=== PATIENT | male | born 1970 | race Caucasian/White ===

== ENCOUNTER 2017-02-03 13:14 | Inpatient (IN) | payer MEDICAID ==
--- NOTE | 2017-02-03 13:42 | ED PDOC ---
Addendum entered and electronically signed by Hyacinth Brandon PA 02/03/17 14:38: Physical Exam - Physical Exam Cardiovascular: Rhythm Regular, No Murmur, Other (Normal S1, S2) Respiratory: Normal Breath Sounds, No Accessory Muscle Use, No Other ( Respiratory distress) Gastrointestinal/Abdominal: Normal Exam, Soft, No Tenderness Extremity: Normal ROM, No Pedal Edema, Capillary Refill (< 2 sec), No Deformity Original Note: HPI: Headache Chief Complaint (Provider): Headache and chest pain History Per: Patient History/Exam Limitations: no limitations Onset/Duration Of Symptoms: Days (x 1) Current Symptoms Are (Timing): Still Present Additional Complaint(s): Jhonatan is a 46-year-old male who presents to the ED for complaints of fatigue, dizziness, headache, and intermittent chest pressure, ongoing since this morning. He describes feeling as if his blood pressure is high, but did not monitor it at home. Currently he has no chest pressure, which last occurred at 10am this morning. Patient sees a primary medical doctor in [place] and takes 3 unknown medications. He has not taken aspirin today. Denies history of myocardial infarction. PMD: Unknown <Hyacinth Brandon - Last Filed: 02/03/17 14:37> <Trung Landa Jr. - Last Filed: 02/08/17 10:52> Time Seen by Provider: 02/03/17 13:30 Chief Complaint (Nursing): Chest Pain Past Medical History Reviewed: Historical Data, Nursing Documentation, Vital Signs Vital Signs: Last Vital Signs Temp 98 F 02/03/17 13:18 Pulse 83 02/03/17 13:18 Resp 18 02/03/17 13:18 BP 150/89 02/03/17 13:18 Pulse Ox 99 02/03/17 13:18 - Family History Family History: States: Unknown Family Hx <Hyacinth Brandon - Last Filed: 02/03/17 14:37> Vital Signs: Last Vital Signs Temp 97.6 F 02/03/17 14:55 Pulse 72 02/03/17 14:55 Resp 18 02/03/17 14:55 BP 154/96 H 02/03/17 14:55 Pulse Ox 99 02/03/17 14:23 <Trung Landa Jr. - Last Filed: 02/08/17 10:52> - Home Medications Home Medications: Ambulatory Orders Medication Instructions Recorded Losartan [Cozaar] 50 mg PO BID 02/03/17 Triamterene/Hydrochlorothiazid 1 tab PO DAILY 02/03/17 [Triamterene-Hctz 37.5-25 mg Tb] amLODIPine [Norvasc] 5 mg PO DAILY 02/03/17 Acetaminophen [Tylenol 325mg tab] 650 mg PO Q4 PRN tab 02/05/17 - Allergies Allergies/Adverse Reactions: Allergies Allergy/AdvReac Type Severity Reaction Status Date / Time No Known Allergies Allergy Verified 02/03/17 13:38 Review of Systems ROS Statement: Except As Marked, All Systems Reviewed And Found Negative Constitutional: Positive for: Other (Fatigue) Cardiovascular: Positive for: Chest Pain (Intermittent chest pressure) Neurological: Positive for: Headache, Dizziness <Hyacinth Brandon - Last Filed: 02/03/17 14:37> Physical Exam - Reviewed Nursing Documentation Reviewed: Yes Vital Signs Reviewed: Yes - Physical Exam Appears: Positive for: Non-toxic, No Acute Distress Head Exam: Positive for: ATRAUMATIC, NORMOCEPHALIC Skin: Positive for: Normal Color, Warm, Dry Eye Exam: Positive for: EOMI, Normal appearance, PERRL Neurologic/Psych: Positive for: Alert, Oriented <Hyacinth Brandon - Last Filed: 02/03/17 14:37> - Laboratory Results Result Diagrams: 02/03/17 13:53 02/03/17 13:53 - ECG O2 Sat by Pulse Oximetry: 99 (RA) Pulse Ox Interpretation: Normal - Progress ED Course And Treament: ACETAMINOPHEN 975 MG X 1 DOSE FOR PAIN HEAD CT: IMPRESSION: No intracranial mass, hemorrhage or evidence of acute infarct. Chronic paranasal sinusitis. Otherwise unremarkable. ASA 324 MG ORDERED CXR: PENDING <Hyacinth Brandon - Last Filed: 02/03/17 14:37> - Laboratory Results Result Diagrams: 02/05/17 07:00 02/05/17 07:00 <Trung Landa Jr. - Last Filed: 02/08/17 10:52> Medical Decision Making Medical Decision Making: Time: 13:38 Initial Impression: Headache Initial Plan: --Labs --Chest X-Ray --EKG --Given Acetaminophen 975 mg PO --Pending CT Head w/o contrast --Case discussed with Dr. Landa, will move patient to Main ED for telemetry monitoring Time: 13:47 --EKG reviewed with Dr Landa and revealed: J point elevation noted in V4 Scribe Attestation: Documented by Martita Harris, acting as a scribe for Hyacinth Brandon PA-C Provider Scribe Attestation: All medical record entries made by the Scribe were at my direction and personally dictated by me. I have reviewed the chart and agree that the record accurately reflects my personal performance of the history, physical exam, medical decision making, and the department course for this patient. I have also personally directed, reviewed, and agree with the discharge instructions and disposition. <Hyacinth Brandon - Last Filed: 02/03/17 14:37> Medical Decision Making: Progress note: 13:50 - Pt seen and examined w/ PA. Pt with chest pressure and high risk factors (ie, HTN), will hospitalize as observation patient for monitoring. Pt endorsed to special shopper Dr. Vineet Edwards. <Trung Landa Jr. - Last Filed: 02/08/17 10:52> Disposition - Patient ED Disposition Is Patient to be Admitted: Transfer of Care - Disposition Disposition: Transfer of Care Disposition Time: 14:23 Patient Signed Over To: Trung Landa Jr. Handoff Comments: PENDING CXR/BLOODWORK/RE-EVALUATION OF BP <Hyacinth Brandon - Last Filed: 02/03/17 14:37> - Patient ED Disposition Is Patient to be Admitted: Yes - Pt Status Changed To: Hospital Disposition Of: Observation <Trung Landa Jr. - Last Filed: 02/08/17 10:52> - Clinical Impression Clinical Impression: Chest pain, Hypertension - Disposition Condition: FAIR
[2017-02-03 14:06] LABS: BASO # 0.1 K/uL (0.0-0.2); BASO % 0.8 % (0.0-2.0); EOS # 0.3 K/uL (0.0-0.7); HEMATOCRIT 39.4 % (35.0-51.0); LYMPH # 2.5 K/uL (1.0-4.3); LYMPH % 37.8 % (20.0-40.0); MEAN CORPUSCULAR HEMOGLOBIN 28.7 pg (27.0-31.0); MEAN CORPUSCULAR HGB CONC 34.9 g/dL (33.0-37.0); MEAN PLATELET VOLUME 7.9 fl (7.2-11.7); MONO # 0.5 K/uL (0.0-0.8); MONO % 6.9 % (0.0-10.0); NEUT # 3.3 K/uL (1.8-7.0); NEUT % 49.5 % (50.0-75.0); NRBC % 0.2 % (0.0-0.0); RED CELL DISTRIBUTION WIDTH 13.2 % (11.5-14.5); WHITE BLOOD COUNT 6.6 K/uL (4.8-10.8)
--- NOTE | 2017-02-03 14:13 | CT ---
PROCEDURE: CT HEAD WITHOUT CONTRAST. HISTORY: AMS COMPARISON: None available. TECHNIQUE: Axial computed tomography images were obtained through the head/brain without intravenous contrast. Radiation dose: Total exam DLP = 879.18 mGy-cm. This CT exam was performed using one or more of the following dose reduction techniques: Automated exposure control, adjustment of the mA and/or kV according to patient size, and/or use of iterative reconstruction technique. FINDINGS: HEMORRHAGE: No intracranial hemorrhage. BRAIN: No mass effect or edema. No atrophy or chronic microvascular ischemic changes. VENTRICLES: Unremarkable. No hydrocephalus. CALVARIUM: Unremarkable. PARANASAL SINUSES: Chronic ethmoid and sphenoid sinusitis MASTOID AIR CELLS: Unremarkable as visualized. No inflammatory changes. OTHER FINDINGS: None. IMPRESSION: No intracranial mass, hemorrhage or evidence of acute infarct. Chronic paranasal sinusitis. Otherwise unremarkable.
[2017-02-03 14:17] LABS: ALB/GLOB RATIO 1.3 (1.0-2.1); ALKALINE PHOSPHATASE 71 U/L (38-126); ALT/SGPT 44 U/L (21-72); AST/SGOT 42 U/L (17-59); BILIRUBIN,TOTAL 0.5 mg/dl (0.2-1.3); BLOOD UREA NITROGEN 12 mg/dl (9-20); CALCIUM 9.7 mg/dL (8.4-10.2); CARBON DIOXIDE 25 mmol/L (22-30); CHLORIDE 103 mmol/L (98-107); GFR AFRICAN-AMERICAN > 60; GLUCOSE,RANDOM 98 mg/dL (75-110); MAGNESIUM 1.8 MG/DL (1.6-2.3); POTASSIUM 4.1 MMOL/L (3.6-5.0); SODIUM 139 mmol/l (132-148)
[2017-02-03] MEDS ORDERED: EnalaprilAT 1.25 mg/ml Inj IVP STA (15:00)
[2017-02-03] MEDS ORDERED: EnalaprilAT 1.25 mg/ml Inj ONE (15:08)
[2017-02-03] MEDS ORDERED: Aspirin 325 mg EC Tablets PO ONE (15:08)
--- NOTE | 2017-02-03 15:30 | RAD ---
HISTORY: chest pain COMPARISON: No prior. FINDINGS: LUNGS: No active pulmonary disease. PLEURA: No significant pleural effusion identified, no pneumothorax apparent. CARDIOVASCULAR: Normal. OSSEOUS STRUCTURES: No significant abnormalities. VISUALIZED UPPER ABDOMEN: Normal. OTHER FINDINGS: None. IMPRESSION: No active disease.
[2017-02-03] MEDS ORDERED: Magnesium Sulfate 2 gm/50 ml 2 GM/50 ML BAG IVPB ONE (17:42)
--- NOTE | 2017-02-03 17:46 | CP.PCM.CON ---
History of Present Illness - History of Present Illness History of Present Illness: CC elevated bp and headache pt with htn hx. 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 this morning woke up with a severe headache and elevated bp. pt felt weak. no cp, sob, lh, dizziness, syncope, palp. he does have dyslipidemia. no dm, no hx of cad, fam hx is sig for dm. pts pressure currently is 140/80 after enaliprat. pt also complaining about frequent urination from diuretic therapy. no hx of edema or chf. per pt recent st and echo wnl. Review of Systems - Constitutional Constitutional: As Per HPI, Headache. absent: Anorexia, Chills, Daytime Sleepiness, Excessive Sweating, Fatigue, Fever, Frequent Falls, Increased Appetite, Lethargy, Malaise, Night Sweats, Snoring, Sleep Apnea, Weight Gain, Weight Loss, Weakness, Other - EENT Eyes: As Per HPI. absent: Blind Spots, Blurred Vision, Change in Vision, Decreased Night Vision, Diplopia, Discharge, Dry Eye, Exophthalmos, Floaters, Irritation, Itchy Eyes, Loss of Peripheral Vision, Pain, Photophobia, Requires Corrective Lenses, Sees Flashes, Spots in Vision, Tunnel Vision, Other Visual Disturbances, Loss of Vision, Other Ears: As Per HPI. absent: Decreased Hearing, Ear Discharge, Ear Pain, Tinnitus , Abnormal Hearing, Disequilibrium, Dizziness, Other Nose/Mouth/Throat: As Per HPI. absent: Epistaxis, Nasal Congestion, Nasal Discharge, Nasal Obstruction, Nasal Trauma, Nose Pain, Post Nasal Drip, Sinus Pain, Sinus Pressure, Bleeding Gums, Change in Voice, Dental Pain, Dry Mouth, Dysphagia, Halitosis, Hoarsness, Lip Swelling, Mouth Lesions, Mouth Pain, Odynophagia, Sore Throat, Throat Swelling, Tongue Swelling, Facial Pain, Neck Pain, Neck Mass, Other - Cardiovascular Cardiovascular: As Per HPI. absent: Acrocyanosis, Chest Pain, Chest Pain at Rest, Chest Pain with Activity, Claudication, Diaphoresis, Dyspnea, Dyspnea on Exertion, Edema, Irregular Heart Rhythm, Pain Radiating to Arm/Neck/Jaw, Leg Edema, Leg Ulcers, Lightheadedness, Orthopnea, Palpitations, Paroxysmal Nocturnal Dyspnea, Pedal Edema, Radiating Pain, Rapid Heart Rate, Slow Heart Rate, Syncope, Other - Respiratory Respiratory: As Per HPI. absent: Cough, Dyspnea, Hemoptysis, Dyspnea on Exertion, Wheezing, Snoring, Stridor, Pain on Inspiration, Chest Congestion, Excessive Mucous Production, Change in Mucous Color, Pain with Coughing, Other - Gastrointestinal Gastrointestinal: absent: As Per HPI, Abdominal Pain, Belching, Bloating, Change in Bowel Habits, Change in Stool Character, Coffee Ground Emesis, Constipation, Cramping, Diarrhea, Dyspepsia, Dysphagia, Early Satiety, Excessive Flatus, Fecal Incontinence, Heartburn, Hematemesis, Hematochezia, Loose Stools, Melena, Nausea, Odynophagia, Temesmus, Vomiting, Other - Genitourinary Genitourinary: As Per HPI. absent: Change in Urinary Stream, Difficulty Urinating, Dysuria, Flank Pain, Hematuria, Pyuria, Nocturia, Urinary Incontinence, Urinary Frequency, Urinary Hesitance, Urinary Urgency, Voiding Freq/Small Amts, Freq UTI, Hx Renal/Bladder Calculi, Hx /Renal Surgery, Bladder Distension, Other - Musculoskeletal Musculoskeletal: absent: As Per HPI, Abnormal Gait, Arthralgias, Atrophy, Back Pain, Deformity, Joint Swelling, Limited Range of Motion, Loss of Height, Muscle Cramps, Muscle Weakness, Myalgias, Neck Pain, Numbness, Radiating Pain into Limb, Stiffness, Tingling, Other - Integumentary Integumentary: absent: As Per HPI, Acne, Alopecia, Bleeding Lesions, Change in Hair, Change in Nails, Change in Pigmentation, Changing Lesions, Dry Skin, Erythema, Furuncle, Hirsutism, Lesions, New Lesions, Non-Healing Lesions, Photosensitivity, Pruritus, Rash, Skin Pain, Skin Ulcer, Sores, Striae, Swelling , Unusual Bruising, Wounds, Jaundice, Other - Neurological Neurological: absent: As Per HPI, Abnormal Gait, Abnormal Hearing, Abnormal Movements, Abnormal Speech, Behavioral Changes, Burning Sensations, Confusion, Convulsions, Disequilibrium, Dizziness, Numbness, Focal Weakness, Frequent Falls , Headaches, Lack of Coordination, Loss of Vision, Memory Loss, Paresthesias, Radicular Pain, Restless Legs, Sensory Deficit, Syncope, Tingling, Tremor, Vertigo, Weakness, Other Visual Disturbances, Other - Psychiatric Psychiatric: absent: As Per HPI, Abnormal Sleep Pattern, Anhedonia, Anxiety, Auditory Hallucinations, Behavioral Changes, Change in Appetite, Change in Libido, Confusion, Depression, Difficulty Concentrating, Hallucinations, Homicidal Ideation, Hopelessness, Irritability, Memory Loss, Mood Swings, Panic Attacks, Paranoia, Suicidal Ideation, Visual Hallucinations, Tactile Hallucinations, Other - Endocrine Endocrine: absent: As Per HPI, Change in Body Appearance, Change in Libido, Cold Intolorance, Deepening of Voice, Excessive Sweating, Fatigue, Flushing, Heat Intolorance, Increase in Ring/Shoe/Hat Size, Palpitations, Polydipsia, Polyphagia, Polyuria, Other - Hematologic/Lymphatic Hematologic: absent: As Per HPI, Easy Bleeding, Easy Bruising, Lymphadenopathy, Other Past Patient History - Infectious Disease Hx of Infectious Diseases: None - Tetanus Immunizations Tetanus Immunization: Unknown - Past Medical History & Family History Past Medical History?: Yes Pertinent Family History: DM - Past Social History Smoking Status: Never Smoked Chewing Tobacco Use: No Cigar Use: No Alcohol: None Drugs: Denies Home Situation {Lives}: With Family Domestic Violence: Negative - CARDIAC Hx Hypertension: Yes - PULMONARY Hx Respiratory Disorders: No - NEUROLOGICAL Hx Neurological Disorder: No - HEENT Hx HEENT Problems: No - RENAL Hx Chronic Kidney Disease: No - ENDOCRINE/METABOLIC Hx Endocrine Disorders: No - HEMATOLOGICAL/ONCOLOGICAL Hx Blood Disorders: No - INTEGUMENTARY Hx Dermatological Problems: No - MUSCULOSKELETAL/RHEUMATOLOGICAL Hx Musculoskeletal Disorders: No - GASTROINTESTINAL Hx Gastrointestinal Disorders: No - GENITOURINARY/GYNECOLOGICAL Hx Genitourinary Disorders: No - PSYCHIATRIC Hx Psychophysiologic Disorder: No Hx Substance Use: No - SURGICAL HISTORY Hx Surgeries: No Meds Allergies/Adverse Reactions: Allergies Allergy/AdvReac Type Severity Reaction Status Date / Time No Known Allergies Allergy Verified 02/03/17 13:38 - Medications Medications: Current Medications Amlodipine Besylate (Norvasc) 5 mg PO BID [facility] Magnesium Sulfate (Magnesium Sulfate 2 Gm/50 Ml Water) 2 gm in 50 mls @ 50 mls/ hr IVPB ONCE ONE PRN Reason: 2 GM/HR Stop: 02/03/17 18:41 Ramipril (Altace) 5 mg PO BID [facility] Physical Exam - Constitutional Appears: Well - Head Exam Head Exam: ATRAUMATIC, NORMAL INSPECTION, NORMOCEPHALIC - Eye Exam Eye Exam: EOMI, Normal appearance, PERRL. absent: Conjunctival injection, Nystagmus, Periorbital swelling, Periorbital tenderness, Scleral icterus Pupil Exam: NORMAL ACCOMODATION, PERRL. absent: Fixed, Irregular, Miosis, Mydriatic, Unequal - ENT Exam ENT Exam: Mucous Membranes Moist, Normal Exam. absent: Mucous Membranes Dry, Normal External Ear Exam, Normal Oropharynx, TM's Normal Bilaterally - Neck Exam Neck exam: Positive for: Normal Inspection. Negative for: Full Rom, Lymphadenopathy, Meningismus, Tenderness, Thyromegaly - Respiratory Exam Respiratory Exam: Clear to Auscultation Bilateral, NORMAL BREATHING PATTERN. absent: Accessory Muscle Use, Chest Wall Tenderness, Decreased Breath Sounds, Prolonged Expiratory Phase, Rales, Rhonchi, Wheezes, Respiratory Distress, Stridor - Cardiovascular Exam Cardiovascular Exam: REGULAR RHYTHM, +S1, +S2. absent: Bradycardia, Tachycardia , Clicks, Diastolic murmur, Gallop, Irregular Rhythm, JVD, RRR, Rubs, +S4, Systolic Murmur - GI/Abdominal Exam GI & Abdominal Exam: Normal Bowel Sounds, Soft - Rectal Exam Rectal Exam: Deferred - Extremities Exam Extremities exam: Positive for: normal inspection. Negative for: calf tenderness, full ROM, joint swelling, normal capillary refill, pedal edema, tenderness, pedal pulses present - Back Exam Back exam: NORMAL INSPECTION. absent: CVA tenderness (L), CVA tenderness (R), FULL ROM, muscle spasm, paraspinal tenderness, rash noted, tenderness, vertebral tenderness - Neurological Exam Neurological exam: Alert, CN II-XII Intact, Normal Gait, Oriented x3, Reflexes Normal - Psychiatric Exam Psychiatric exam: Normal Affect, Normal Mood - Skin Skin Exam: Dry, Intact, Normal Color, Warm Results - Vital Signs Recent Vital Signs: Last Vital Signs Temp 97.6 F 02/03/17 14:55 Pulse 78 02/03/17 17:22 Resp 19 02/03/17 17:22 BP 140/90 02/03/17 17:22 Pulse Ox 98 02/03/17 17:22 - Labs Result Diagrams: 02/03/17 13:53 02/03/17 13:53 - EKG Data EKG Interpreted by: Myself EKG shows normal: Sinus rhythm Rate: Normal Assessment & Plan (1) Hypertensive urgency Status: Acute (2) Right arm pain Status: Acute (3) Weakness Status: Acute (4) Dyslipidemia Status: Acute (5) Hypertension Status: Acute - Assessment and Plan (Free Text) Plan: change meds to ramipril 5mg bid norvasc 5mg bid check lipids no need for diuretics at this time. monitor on tele/obs. november d/c in am if bp improved and no symptoms. 85 min total care time
[2017-02-03] MEDS ORDERED: Magnesium Sulfate 2 gm/50 ml 2 GM/50 ML BAG ONE (17:47)
[2017-02-03] MEDS ORDERED: Pneumococcal 23-Valent Vaccine IM ONE (22:30)
[2017-02-04 07:48] LABS: HEMATOCRIT 40.5 % (35.0-51.0); MEAN CELL VOLUME 83.1 fl (80.0-94.0); MEAN CORPUSCULAR HEMOGLOBIN 28.4 pg (27.0-31.0); MEAN CORPUSCULAR HGB CONC 34.1 g/dL (33.0-37.0); RED CELL DISTRIBUTION WIDTH 13.6 % (11.5-14.5)
[2017-02-04 08:33] LABS: PARTIAL THROMBOPLASTIN TIME 32.6 Seconds (25.6-37.1)
[2017-02-04] MEDS: Enoxaparin 40 mg Syringe SC SCH (09:09)
--- NOTE | 2017-02-04 10:31 | CARD ---
APPROVED REPORT EKG Measurement Heart [id number] <Conclusion> Normal sinus rhythm Moderate voltage criteria for LVH, may be normal variant Borderline ECG
[2017-02-04 10:42] LABS: URINE BILIRUBIN NEGATIVE (NEGATIVE); URINE BLOOD NEGATIVE (NEGATIVE); URINE COLOR STRAW (YELLOW); URINE GLUCOSE (UA) NEG (Normal); URINE KETONE NEGATIVE (NEGATIVE); URINE LEUKOCYTE ESTERASE NEG Leu/uL (Negative); URINE PROTEIN NEGATIVE (NEGATIVE); URINE UROBILINOGEN 0.2-1.0 mg/dL (0.2-1.0); WBC URINE < 1 /hpf (0-5)
--- NOTE | 2017-02-04 12:16 | CP.PCM.PN ---
Subjective - Date & Time of Evaluation Date of Evaluation: 02/05/17 Time of Evaluation: 11:00 - Subjective Subjective: continued bush, however has sinus infxn. bp improved but still mildly elevated given age. carotid plaque seen on US. Elevated chol noted Objective - Vital Signs/Intake and Output Vital Signs (last 24 hours): Temp Pulse Resp BP Pulse Ox 98.5 F 63 18 163/93 H 98 02/04/17 08:00 02/04/17 09:10 02/04/17 08:00 02/04/17 09:10 02/04/17 08:00 - Medications Medications: Current Medications Acetaminophen (Tylenol 325mg Tab) 650 mg PO Q4 PRN PRN Reason: Headache Last Admin: 02/03/17 21:39 Dose: 650 mg Amlodipine Besylate (Norvasc) 5 mg PO BID [facility] Last Admin: 02/04/17 09:10 Dose: 5 mg Enoxaparin Sodium (Lovenox) 40 mg SC DAILY [facility] PRN Reason: Protocol Last Admin: 02/04/17 09:09 Dose: 40 mg Hydrochlorothiazide (Hydrodiuril) 25 mg PO DAILY [facility] Magnesium Sulfate 2 gm/ Sodium (Chloride) 104 mls @ 104 mls/hr IVPB ONCE ONE PRN Reason: 2 GM/HR Stop: 02/04/17 13:06 Ramipril (Altace) 5 mg PO BID [facility] Last Admin: 02/04/17 09:10 Dose: 5 mg - Labs Labs: 02/04/17 06:00 PT 12.0 Seconds (9.8-13.1) 02/04/17 06:00 INR 1.1 (0.9-1.2) 02/04/17 06:00 APTT 32.6 Seconds (25.6-37.1) 02/04/17 06:00 - Constitutional Appears: Well - Head Exam Head Exam: ATRAUMATIC, NORMAL INSPECTION, NORMOCEPHALIC - Eye Exam Eye Exam: EOMI, Normal appearance, PERRL. absent: Conjunctival injection, Nystagmus, Periorbital swelling, Periorbital tenderness, Scleral icterus Pupil Exam: NORMAL ACCOMODATION, PERRL - ENT Exam ENT Exam: Mucous Membranes Moist, Normal Exam. absent: Mucous Membranes Dry, Normal External Ear Exam, Normal Oropharynx, TM's Normal Bilaterally - Neck Exam Neck Exam: Full ROM, Normal Inspection - Respiratory Exam Respiratory Exam: Clear to Ausculation Bilateral, NORMAL BREATHING PATTERN. absent: Accessory Muscle Use, Chest Wall Tenderness, Decreased Breath Sounds, Prolonged Expiratory Phase, Rales, Rhonchi, Wheezes, Respiratory Distress, Stridor - Cardiovascular Exam Cardiovascular Exam: REGULAR RHYTHM, +S1, +S2, Murmur. absent: Bradycardia, Tachycardia, Clicks, Diastolic murmur, Gallop, Irregular Rhythm, JVD, RRR, Rubs , +S4 - GI/Abdominal Exam GI & Abdominal Exam: Soft, Normal Bowel Sounds. absent: Bruit, Distended, Firm , Guarding, Rigid, Tenderness, Diminished Bowel Sounds, Hernia, Hyperactive Bowel Sounds, Hypoactive Bowel Sounds, Organomegaly, Pulsatile Mass, Rebound, Mass - Rectal Exam Rectal Exam: Deferred - Extremities Exam Extremities Exam: Full ROM, Normal Capillary Refill, Normal Inspection. absent : Calf Tenderness, Joint Swelling, Pedal Edema, Tenderness - Back Exam Back Exam: NORMAL INSPECTION. absent: CVA tenderness (L), CVA tenderness (R), Full ROM, muscle spasm, paraspinal tenderness, rash noted, tenderness, vertebral tenderness - Neurological Exam Neurological Exam: Alert, Awake, CN II-XII Intact, Normal Gait, Oriented x3. absent: Abnormal Gait, Altered, Motor Sensory Deficit, Reflexes Normal - Psychiatric Exam Psychiatric exam: Normal Affect, Normal Mood. absent: Agitated, Anxious, Depressed, Flat Affect, Homicidal Ideation, Manic, Suicidal Ideation - Skin Skin Exam: Dry, Intact, Normal Color, Warm. absent: Abrasion, Cyanosis, Diaphoretic, Erythema, Mottled, Pallor, Pallor, Petechiae, Rash, Urticaria, Vesicles Assessment and Plan (1) Hypertensive urgency Status: Acute (2) Right arm pain Status: Acute (3) Weakness Status: Acute (4) Dyslipidemia Status: Acute (5) Hypertension Status: Chronic (6) Chronic sinusitis Status: Acute - Assessment and Plan (Free Text) Plan: add hctz as bp remains elevated. pts hr is in 60s thus no room for bb or clonidine. Will increase Ramipril and norvasc dosing. prelim echo reveals normal ef. hyperdynamic lv. no sig valve disease. normal diastolic. LA is 4.0 however LA index is within normal limits. IVC is underfilled. Pt likely hypovolemic. 55 min care time
--- NOTE | 2017-02-04 12:20 | CARD ---
APPROVED REPORT EXAM: Two-dimensional and M-mode echocardiogram with Doppler and color Doppler. Other Information Quality : GoodRhythm : NSR INDICATION Hypertension/HCVD 2D DIMENSIONS IVSd1.24 (0.7-1.1cm)LVDd4.19 (3.9-5.9cm) LVOT Diameter2.41 (1.8-2.4cm)PWd0.87 (0.7-1.1cm) IVSs1.48 (0.8-1.2cm)LVDs2.91 (2.5-4.0cm) FS (%) 30.5 %PWs1.55 (0.8-1.2cm) M-Mode DIMENSIONS Left Atrium (MM)4.00 (2.5-4.0cm)IVSd1.74 (0.7-1.1cm) Aortic Root3.74 (2.2-3.7cm)LVDd4.18 (4.0-5.6cm) Aortic Cusp Exc.2.18 (1.5-2.0cm)PWd1.06 (0.7-1.1cm) IVSs1.82 cmFS (%) 42 % LVDs2.41 (2.0-3.8cm)PWs1.74 cm Mitral Valve MV E Epbvljob32.2cm/sMV DECEL [id number] A Dlvdocfh86.1cm/s MV XRV801exN/A ratio1.0MVA (PHT)2.06cm2 TDI Lateral E' Peak V10.84cm/sMedial E' Peak V7.74cm/sE/Lateral E'5.6 E/Medial E'7.9 Pulmonary Valve PV Peak Mdnndeov847.5cm/s Tricuspid Valve TR Peak Cstsevlc886ho/sRAP PIFQJJJG93bbLwEP Peak Gr.17mmHg [id number] LEFT VENTRICLE The left ventricle is normal size. There is borderline concentric left ventricular hypertrophy on the 2D study. The left ventricular function is normal. The left ventricular ejection fraction is - 65%. There is normal LV segmental wall motion. Transmitral Doppler flow pattern is Grade I-abnormal relaxation pattern. No left ventricle thrombus noted on this study. There is no ventricular septal defect visualized. There is no left ventricular aneurysm. There is no mass noted in the left ventricle. RIGHT VENTRICLE The right ventricle is normal size. There is normal right ventricular wall thickness. The right ventricular systolic function is normal. ATRIA The left atrium size is normal. There is no thrombus suspected in the left atrium. The right atrium size is normal. The interatrial septum is intact with no evidence for an atrial septal defect. AORTIC VALVE The aortic valve is normal in structure and function. No aortic regurgitation is present. There is no aortic valvular stenosis. MITRAL VALVE The mitral valve is normal in structure and function. There is no evidence of mitral valve prolapse. There is no mitral valve stenosis. Mitral regurgitation is trivial. TRICUSPID VALVE The tricuspid valve is normal in structure and function. There is trace tricuspid regurgitation. Right ventricular systolic pressure is estimated at 27 mmHg. There is no tricuspid valve prolapse or vegetation. There is no tricuspid valve stenosis. PULMONIC VALVE The pulmonary valve is normal in structure and function. There is trace pulmonic valvular regurgitation. GREAT VESSELS The aortic root is normal in size. The IVC is normal in size and collapses >50% with inspiration. PERICARDIAL EFFUSION The pericardium appears normal. There is no pleural effusion. <Conclusion> The left ventricle is normal in size. There is borderline concentric left ventricular hypertrophy on the 2D study. The left ventricular function is normal. The left ventricular ejection fraction is - 65%. The left atrium, right ventricle and right atrium are normal in size. The mitral, aortic and tricuspid valves are normal. There is trace tricuspid regurgitation.
[2017-02-04] MEDS ORDERED: Magnesium Sulfate 2 gm/50 ml 2 GM/50 ML BAG IVPB ONE (12:45)
[2017-02-04 12:54] VITALS: RESP 20
--- NOTE | 2017-02-04 13:40 | CP.PCM.HP ---
History of Present Illness - History of Present Illness History of Present Illness: CC: Severe Headache. 46 y/o M, admitted to [facility] on 02/03/17 c/o of moderate to severe headache, intermittent, pressure type, intensity 4-7:10, associated to dizziness. Worsening symptom: Hx of HTN, as per Pt, BP was elevated at home associated to intermittent chest pressure, he was taking Losartan with no improvement. Pt denied: Fever, chills, n/v/d, abdominal pain, urinary symptoms, CP, palpitations, syncope, LOC, numbness, SOB, cough, sick contact, recent travel. PMH: HTN. CXR: No active disease. CT Head: No evidence of mass, hemorrhage or acute infarct. Chronic paranasal sinusitis. Echo: LV function normal, LVEF 65%. Present on Admission - Present on Admission Any Indicators Present on Admission: No Review of Systems - Constitutional Constitutional: Headache - EENT Eyes: Other (negative) Ears: Other (negative) Nose/Mouth/Throat: Other (negative) - Cardiovascular Cardiovascular: Other (Chest pressure) - Respiratory Respiratory: Other (negative) - Gastrointestinal Gastrointestinal: Other (negative) - Genitourinary Genitourinary: Other (negative) - Musculoskeletal Musculoskeletal: Other (negative) - Integumentary Integumentary: Other (negative) - Neurological Neurological: Dizziness - Psychiatric Psychiatric: Other (negative) - Endocrine Endocrine: Other (negative) - Hematologic/Lymphatic Hematologic: Other (negative) Past Patient History - Infectious Disease Hx of Infectious Diseases: None - Tetanus Immunizations Tetanus Immunization: Unknown - Past Medical History & Family History Past Medical History?: Yes Pertinent Family History: DM - Past Social History Smoking Status: Never Smoked Chewing Tobacco Use: No Cigar Use: No Alcohol: None Drugs: Denies Home Situation {Lives}: With Family Domestic Violence: Negative - CARDIAC Hx Cardiac Disorders: Yes Hx Hypertension: Yes - PULMONARY Hx Respiratory Disorders: No - NEUROLOGICAL Hx Neurological Disorder: No - HEENT Hx HEENT Problems: No - RENAL Hx Chronic Kidney Disease: No - ENDOCRINE/METABOLIC Hx Endocrine Disorders: No - HEMATOLOGICAL/ONCOLOGICAL Hx Blood Disorders: No - INTEGUMENTARY Hx Dermatological Problems: No - MUSCULOSKELETAL/RHEUMATOLOGICAL Hx Musculoskeletal Disorders: No - GASTROINTESTINAL Hx Gastrointestinal Disorders: No - GENITOURINARY/GYNECOLOGICAL Hx Genitourinary Disorders: No - PSYCHIATRIC Hx Psychophysiologic Disorder: No Hx Substance Use: No - SURGICAL HISTORY Hx Surgeries: No - ANESTHESIA Hx Anesthesia: No Meds Home Medications: Home Medication List Medication Instructions Recorded Confirmed Type Acetaminophen [Tylenol 325mg tab] 650 mg PO Q4 PRN tab 02/05/17 Rx Allergies/Adverse Reactions: Allergies Allergy/AdvReac Type Severity Reaction Status Date / Time No Known Allergies Allergy Verified 02/03/17 13:38 Physical Exam - Constitutional Appears: No Acute Distress - Head Exam Head Exam: NORMAL INSPECTION - Eye Exam Eye Exam: PERRL - ENT Exam ENT Exam: Normal Oropharynx - Neck Exam Neck exam: Positive for: Normal Inspection - Respiratory Exam Respiratory Exam: NORMAL BREATHING PATTERN - Cardiovascular Exam Cardiovascular Exam: REGULAR RHYTHM - GI/Abdominal Exam GI & Abdominal Exam: Normal Bowel Sounds, Soft - Extremities Exam Extremities exam: Positive for: normal inspection - Back Exam Back exam: NORMAL INSPECTION - Neurological Exam Neurological exam: Alert, Oriented x3 Additional comments: No motor sensory deficit. - Psychiatric Exam Psychiatric exam: Normal Mood - Skin Skin Exam: Normal Color, Warm Results - Vital Signs Recent Vital Signs: Last Vital Signs Temp 97.9 F 02/04/17 12:00 Pulse 71 02/04/17 12:00 Resp 20 02/04/17 12:00 BP 147/88 02/04/17 12:00 Pulse Ox 99 02/04/17 12:00 reviewed Jose - Labs Result Diagrams: 02/05/17 07:00 02/05/17 07:00 Labs: Laboratory Results - last 24 hr 02/04/17 02/04/17 02/04/17 02:20 06:00 06:00 WBC 6.0 RBC 4.87 Hgb 13.8 Hct 40.5 MCV 83.1 MCH 28.4 MCHC 34.1 RDW 13.6 Plt Count 193 PT 12.0 INR 1.1 APTT 32.6 Troponin I < 0.0120 Urine Color Urine Clarity Urine pH Ur Specific [place] Urine Protein Urine Glucose (UA) Urine Ketones Urine Blood Urine Nitrate Urine Bilirubin Urine Urobilinogen Ur Leukocyte Esterase Urine Microscopic WBC 02/04/17 02/04/17 10:30 11:30 WBC RBC Hgb Hct MCV MCH MCHC RDW Plt Count PT INR APTT Troponin I < 0.0120 Urine Color Straw Urine Clarity Clear Urine pH 7.0 Ur Specific [place] 1.008 Urine Protein Negative Urine Glucose (UA) Neg Urine Ketones Negative Urine Blood Negative Urine Nitrate Negative Urine Bilirubin Negative Urine Urobilinogen 0.2-1.0 Ur Leukocyte Esterase Neg Urine Microscopic WBC < 1 reviewed J.P. - EKG Data EKG comments: reviewed J.P. - Impressions Impression: Echo Reviewed J.P. - Imaging and Cardiology Chest x-ray Status: Report reviewed by me (Jose) CT scan - head Status: Report reviewed by me (Jose) Assessment & Plan (1) Head ache Status: Acute Priority: High (2) Hypertensive urgency Status: Acute Priority: High (3) Hypertension Status: Chronic Priority: High (4) Dyslipidemia Status: Acute Priority: High - Assessment and Plan (Free Text) Plan: Continue Ramipril, Norvasc, Plavix and rest of Tx. f/u Carotid U-S, Cariology consult appreciated, Neuro consult. - Date & Time Date: 02/04/17 Time: 11:15
[2017-02-04 23:52] VITALS: TEMP 98.1
[2017-02-05 08:23] LABS: ALB/GLOB RATIO 1.2 (1.0-2.1); ALKALINE PHOSPHATASE 71 U/L (38-126); ALT/SGPT 36 U/L (21-72); AST/SGOT 32 U/L (17-59); BILIRUBIN,TOTAL 0.5 mg/dl (0.2-1.3); BLOOD UREA NITROGEN 11 mg/dl (9-20); CALCIUM 9.6 mg/dL (8.4-10.2); CARBON DIOXIDE 26 mmol/L (22-30); CHLORIDE 102 mmol/L (98-107); CHOLESTEROL 233 mg/dL (0-199); GFR AFRICAN-AMERICAN > 60; GLUCOSE,RANDOM 109 mg/dL (75-110); SODIUM 139 mmol/l (132-148); TOTAL PROTEIN 7.7 G/DL (6.3-8.2)
[2017-02-05 08:24] LABS: HEMATOCRIT 39.9 % (35.0-51.0); MEAN CELL VOLUME 82.8 fl (80.0-94.0); MEAN CORPUSCULAR HEMOGLOBIN 29.1 pg (27.0-31.0); MEAN CORPUSCULAR HGB CONC 35.1 g/dL (33.0-37.0); RED CELL DISTRIBUTION WIDTH 13.5 % (11.5-14.5); WHITE BLOOD COUNT 7.3 K/uL (4.8-10.8)
[2017-02-05 08:30] VITALS: BP 145/95; PULSE 72; O2SAT 97
[2017-02-05] MEDS: Enoxaparin 40 mg Syringe SC SCH (08:36)
--- NOTE | 2017-02-05 10:28 | CP.PCM.PN ---
Objective - Vital Signs/Intake and Output Vital Signs (last 24 hours): Temp Pulse Resp BP Pulse Ox 98.1 F 72 20 145/95 H 97 02/05/17 08:00 02/05/17 08:36 02/05/17 08:00 02/05/17 08:36 02/05/17 08:00 - Medications Medications: Current Medications Acetaminophen (Tylenol 325mg Tab) 650 mg PO Q4 PRN PRN Reason: Headache Last Admin: 02/05/17 08:34 Dose: 650 mg Amlodipine Besylate (Norvasc) 5 mg PO BID [facility] Last Admin: 02/05/17 08:36 Dose: 5 mg Clopidogrel Bisulfate (Plavix) 75 mg PO DAILY [facility] Last Admin: 02/05/17 08:37 Dose: 75 mg Enoxaparin Sodium (Lovenox) 40 mg SC DAILY [facility] PRN Reason: Protocol Last Admin: 02/05/17 08:36 Dose: 40 mg Hydrochlorothiazide (Hydrodiuril) 25 mg PO DAILY [facility] Last Admin: 02/05/17 08:35 Dose: 25 mg Ramipril (Altace) 5 mg PO BID [facility] Last Admin: 02/05/17 08:36 Dose: 5 mg - Labs Labs: 02/05/17 07:00 02/05/17 07:00 PT 12.0 Seconds (9.8-13.1) 02/04/17 06:00 INR 1.1 (0.9-1.2) 02/04/17 06:00 APTT 32.6 Seconds (25.6-37.1) 02/04/17 06:00
--- NOTE | 2017-02-05 10:48 | CP.PCM.PN ---
Subjective - Date & Time of Evaluation Date of Evaluation: 02/05/17 Time of Evaluation: 11:00 - Subjective Subjective: F/U Headache, HTN Pt c/o of frontal headache extended to the bridge of the nose,no dizziness. Objective - Vital Signs/Intake and Output Vital Signs (last 24 hours): Temp Pulse Resp BP Pulse Ox 98.1 F 72 20 145/95 H 97 02/05/17 08:00 02/05/17 08:36 02/05/17 08:00 02/05/17 08:36 02/05/17 08:00 - Medications Medications: Current Medications Acetaminophen (Tylenol 325mg Tab) 650 mg PO Q4 PRN PRN Reason: Headache Last Admin: 02/05/17 08:34 Dose: 650 mg Amlodipine Besylate (Norvasc) 5 mg PO BID [facility] Last Admin: 02/05/17 08:36 Dose: 5 mg Clopidogrel Bisulfate (Plavix) 75 mg PO DAILY [facility] Last Admin: 02/05/17 08:37 Dose: 75 mg Enoxaparin Sodium (Lovenox) 40 mg SC DAILY [facility] PRN Reason: Protocol Last Admin: 02/05/17 08:36 Dose: 40 mg Hydrochlorothiazide (Hydrodiuril) 25 mg PO DAILY [facility] Last Admin: 02/05/17 08:35 Dose: 25 mg Ramipril (Altace) 5 mg PO BID [facility] Last Admin: 02/05/17 08:36 Dose: 5 mg - Labs Labs: 02/05/17 07:00 02/05/17 07:00 PT 12.0 Seconds (9.8-13.1) 02/04/17 06:00 INR 1.1 (0.9-1.2) 02/04/17 06:00 APTT 32.6 Seconds (25.6-37.1) 02/04/17 06:00 - Constitutional Appears: No Acute Distress - Head Exam Head Exam: NORMAL INSPECTION - Eye Exam Eye Exam: PERRL - ENT Exam ENT Exam: Normal Oropharynx - Neck Exam Neck Exam: Normal Inspection - Respiratory Exam Respiratory Exam: NORMAL BREATHING PATTERN - Cardiovascular Exam Cardiovascular Exam: REGULAR RHYTHM - GI/Abdominal Exam GI & Abdominal Exam: Soft, Normal Bowel Sounds - Back Exam Back Exam: NORMAL INSPECTION - Neurological Exam Neurological Exam: Alert, Oriented x3. absent: Motor Sensory Deficit - Psychiatric Exam Psychiatric exam: Normal Mood - Skin Skin Exam: Normal Color, Warm Assessment and Plan (1) Hypertensive urgency Status: Acute (2) Hypertension Status: Chronic (3) Sinusitis Assessment & Plan: Paranasal. Status: Acute (4) Dyslipidemia Status: Acute (5) Head ache Status: Acute - Assessment and Plan (Free Text) Plan: CT Head showed : Paranasal Sinusitis, to have Augmenting 875 bid, Flonase 2 puff od R-L nostril, Xyzal 5 mg od, continue rest of home medications, Pt improved and stable to be discharged f/u out Pt PMD, ENT and neurology.
[2017-02-06] MEDS ORDERED: hydroCHLOROthiazide-Triamterene 25 mg-37.5 mg Cap UD PO SCH (09:00)
--- NOTE | 2017-02-06 10:59 | US ---
PROCEDURE: Carotid vertebral duplex sonography HISTORY: dizziness COMPARISON: None available. TECHNIQUE: Grayscale, color Doppler and spectral Doppler assessment of the carotid system bilaterally. This includes common carotid, internal carotid arteries Vertebral artery assessment with respect to direction of flow (antegrade or retrograde) FINDINGS: RIGHT carotid system: Assessment of plaque: Heterogeneous plaque formation. Peak systolic ICA velocity: 88.2 cm/sec End-diastolic velocity: 39.9 cm/sec ICA/CCA ratio: 1.0 Vertebral artery flow: Antegrade LEFT carotid system: Assessment of plaque: Heterogeneous plaque formation. Peak systolic ICA velocity: 85.7 cm/sec End-diastolic velocity: 37.2 cm/sec ICA/CCA ratio: 0.7 Vertebral artery flow: Antegrade IMPRESSION: Right ICA degree of stenosis: Less than 50% Left ICA degree of stenosis: Less than 50% Reference Internal Carotid Artery (ICA) Peak Systolic Velocity (PSV) for above: 1. Less than 50% stenosis less than 125 cm/s peak systolic velocity 2. 50-69% stenosis 125-230cm/s peak systolic velocity 3. Greater than 70% but less than near occlusion greater than 230 cm/s peak systolic velocity
--- NOTE | 2017-02-22 10:36 | CP.PCM.DIS ---
Provider - Provider Date of Admission: 02/04/17 21:30 Attending physician: Vineet Edwards MD Consults: Cardiology and Neurology. Time Spent in preparation of Discharge (in minutes): 25 Diagnosis - Discharge Diagnosis (1) Hypertensive urgency Status: Acute Priority: High (2) Hypertension Status: Chronic Priority: High (3) Sinusitis Status: Acute (4) Dyslipidemia Status: Acute Priority: High (5) Head ache Status: Acute Priority: High Hospital Course - Lab Results Lab Results: Most Recent Lab Values WBC 7.3 K/uL (4.8-10.8) 02/05/17 07:00 RBC 4.82 Mil/uL (4.40-5.90) 02/05/17 07:00 Hgb 14.0 g/dL (12.0-18.0) 02/05/17 07:00 Hct 39.9 % (35.0-51.0) 02/05/17 07:00 MCV 82.8 fl (80.0-94.0) 02/05/17 07:00 MCH 29.1 pg (27.0-31.0) 02/05/17 07:00 MCHC 35.1 g/dL (33.0-37.0) 02/05/17 07:00 RDW 13.5 % (11.5-14.5) 02/05/17 07:00 Plt Count 194 K/uL (130-400) 02/05/17 07:00 MPV 7.9 fl (7.2-11.7) 02/03/17 13:53 Neut % (Auto) 49.5 % (50.0-75.0) L 02/03/17 13:53 Lymph % (Auto) 37.8 % (20.0-40.0) 02/03/17 13:53 [place] % (Auto) 6.9 % (0.0-10.0) 02/03/17 13:53 Eos % (Auto) 5.0 % (0.0-4.0) H 02/03/17 13:53 Baso % (Auto) 0.8 % (0.0-2.0) 02/03/17 13:53 Neut # 3.3 K/uL (1.8-7.0) 02/03/17 13:53 Lymph # 2.5 K/uL (1.0-4.3) 02/03/17 13:53 [place] # 0.5 K/uL (0.0-0.8) 02/03/17 13:53 Eos # 0.3 K/uL (0.0-0.7) 02/03/17 13:53 Baso # 0.1 K/uL (0.0-0.2) 02/03/17 13:53 PT 12.0 Seconds (9.8-13.1) 02/04/17 06:00 INR 1.1 (0.9-1.2) 02/04/17 06:00 APTT 32.6 Seconds (25.6-37.1) 02/04/17 06:00 Sodium 139 mmol/l (132-148) 02/05/17 07:00 Potassium 4.0 MMOL/L (3.6-5.0) 02/05/17 07:00 Chloride 102 mmol/L (98-107) 02/05/17 07:00 Carbon Dioxide 26 mmol/L (22-30) 02/05/17 07:00 Anion Gap 15 (10-20) 02/05/17 07:00 BUN 11 mg/dl (9-20) 02/05/17 07:00 Creatinine 0.9 mg/dL (0.8-1.5) 02/05/17 07:00 Est GFR ( Amer) > 60 02/05/17 07:00 Est GFR (Non-Af Amer) > 60 02/05/17 07:00 Random Glucose 109 mg/dL (75-110) 02/05/17 07:00 Calcium 9.6 mg/dL (8.4-10.2) 02/05/17 07:00 Magnesium 1.8 MG/DL (1.6-2.3) 02/03/17 13:53 Total Bilirubin 0.5 mg/dl (0.2-1.3) 02/05/17 07:00 AST 32 U/L (17-59) 02/05/17 07:00 ALT 36 U/L (21-72) 02/05/17 07:00 Alkaline Phosphatase 71 U/L (38-126) 02/05/17 07:00 Troponin I < 0.0120 ng/mL (0.00-0.120) 02/04/17 14:27 Total Protein 7.7 G/DL (6.3-8.2) 02/05/17 07:00 Albumin 4.3 g/dL (3.5-5.0) 02/05/17 07:00 Globulin 3.4 gm/dL (2.2-3.9) 02/05/17 07:00 Albumin/Globulin Ratio 1.2 (1.0-2.1) 02/05/17 07:00 Triglycerides 274 mg/DL (0-149) H 02/05/17 07:00 Cholesterol 233 mg/dL (0-199) H 02/05/17 07:00 LDL Cholesterol Direct 161 mg/dL (0-129) H 02/05/17 07:00 HDL Cholesterol 31 MG/DL (30-70) 02/05/17 07:00 Urine Color Straw (YELLOW) 02/04/17 10:30 Urine Clarity Clear (Clear) 02/04/17 10:30 Urine pH 7.0 (5.0-8.0) 02/04/17 10:30 Ur Specific [place] 1.008 (1.003-1.030) 02/04/17 10:30 Urine Protein Negative mg/dL (NEGATIVE) 02/04/17 10:30 Urine Glucose (UA) Neg mg/dL (Normal) 02/04/17 10:30 Urine Ketones Negative mg/dL (NEGATIVE) 02/04/17 10:30 Urine Blood Negative (NEGATIVE) 02/04/17 10:30 Urine Nitrate Negative (NEGATIVE) 02/04/17 10:30 Urine Bilirubin Negative (NEGATIVE) 02/04/17 10:30 Urine Urobilinogen 0.2-1.0 mg/dL (0.2-1.0) 02/04/17 10:30 Ur Leukocyte Esterase Neg Tha/uL (Negative) 02/04/17 10:30 Urine Microscopic WBC < 1 /hpf (0-5) 02/04/17 10:30 - Date & Time of H&P Date of H&P: 02/04/17 Time of H&P: 11:15 Discharge Exam - Head Exam Head Exam: NORMAL INSPECTION Discharge Plan - Follow Up Plan Condition: FAIR Disposition: HOME/ ROUTINE Patient education suggested?: Yes Instructions: Chest Pain (DC), Sinusitis (GEN) Additional Instructions: Please schedule an appointment with your physician within one week. Please follow up with an ENT and neurologist. You can call your insurance for a list of in network providers. Referrals: Yariel Sharp MD [Staff Provider] - Vasu Ponce MD [Medical Doctor] -
== END 2017-02-05 14:00 | disposition home or self-care (01) | DRG 134 ==
LOC: H.ER 13:14 → H.ERHOLD 14:59 → H.TEL 18:33 → OBSVTOIN 02-04 21:30
PROVIDERS: ADMIT Internal Medicine Pulmonary Disease; ATTEND Internal Medicine Pulmonary Disease
DX: I16.0 Hypertensive urgency (principal); E11.9 Type 2 diabetes mellitus without complications; E78.5 Hyperlipidemia, unspecified; J32.9 Chronic sinusitis, unspecified; M79.601 Pain in right arm; I10 Essential (primary) hypertension; R35.0 Frequency of micturition; R42 Dizziness and giddiness; R51 Headache